=== PATIENT | female | born 1955 | race Caucasian/White ===

== ENCOUNTER → 2017-10-23 | Outpatient (CLI) | payer OTHER | LOC: LAB 08:30 → LAB SHORT 08:30 | DX: M54.5 Low back pain (principal); R10.2 Pelvic and perineal pain | CPT/HCPCS: 87086 ==

== ENCOUNTER 2017-11-14 08:12 | Day surgery (SDC) | payer OTHER ==
[~2017-11-14] VITALS: Ht 165.1 cm; Wt 66.2 kg
[~2017-11-14 08:12] MED LIST: CALCIUM; CHOL10002 PO; MAGNESIUM; TOCO1000 PO; TUMERIC
== END 2017-11-14 09:48 | disposition home or self-care (01) ==
LOC: ORSCMMR 08:12 → ORD 09:00 → ORSCMMR 09:00
PROVIDERS: Internal Medicine Gastroenterology
PROC: 0DJD8ZZ Inspection of Lower Intestinal Tract, Via Natural or Artificial Opening Endoscopic (ICD-10-PCS; principal; 2017-11-14 09:00)
DX: Z12.11 Encounter for screening for malignant neoplasm of colon (principal); Z86.010 Personal history of colon polyps
CPT/HCPCS: J7120